=== PATIENT | male | born 1970 | race Caucasian/White ===

== ENCOUNTER 2020-11-02 15:41 | Emergency (ER) | payer BC, SELFPAY ==
[2020-11-02 16:36] VITALS: BP 135/97; PULSE 88; RESP 20; TEMP 37.3; O2SAT 95; BMI 33.9
--- NOTE | 2020-11-02 16:37 | HMH.EDUTC ---
[facility] Disposition Clinical Impression: COVID-19 Disposition: Home, Self-Care Condition on Discharge: Good Instructions: Preventing the Spread of Coronavirus Discharge Instructions Additional Instructions: Drink plenty of fluids. Take tylenol for pain or fever. Return if you begin to have difficulty breathing. Follow up with your regular doctor. GO TO THE ER FOR ANY WORSENING SYMPTOMS Quarantine until you know the results of your covid-19 test. If it is positive, the health department should call you and give you further instructions about your length of Quarantine and other thing. I sent a prescription for zofran to your pharmacy. If you begin to have nausea you could get this and it would help. If you don't end up needing it, then don't pick it up. Prescriptions: Ondansetron [Zofran 4mg ODT] 4 mg PO Q8HP PRN #20 tab.rapdis PRN Reason: Nausea Transmission Status: Received by [id number] Referrals: Laura Meza MD [Primary Care Provider] - Time of Disposition: 16:49 Medical Decision Making - Medical Records Medical records reviewed: No: I reviewed the patient's medical records. - Dale Inquiry Pt receiving controlled substance: No Vital Signs: 11/02/20 16:36 11/02/20 17:07 Temperature 99.2 F 99.3 F Temperature Source Oral Pulse Rate 85 Pulse Rate [Left] 88 Respiratory Rate 20 18 Blood Pressure 141/92 H Blood Pressure [Right Arm] 135/97 H Blood Pressure Mean [Right Arm] 109 02 Sat by Pulse Oximetry 95 Orders (Tests/Meds): ORDERS Category Date Time Status Covid-19 Nasal PCR ([facility]) Routine Lab 11/02/20 16:30 Received [facility] HPI - General Stated complaint: covid test Time Seen by Provider: 11/02/20 16:37 - History of Present Illness Provider Complaint: He states that he started feeling bad last (3 days ago). He was exposed to covid-19 at his work before that. He has been vaccinated with the Pfizer vaccine. He denies that he has felt very bad. He denies any cough, congestion or chest pain. - Related Data Home Medications Medication Instructions Recorded Confirmed bupropion HCl 150 mg tablet,12 hr 150 mg PO BID 06/20/17 sustained-release lisinopril 5 mg tablet 5 mg PO ONCE 06/20/17 Previous Rx's Medication Instructions Recorded Ondansetron [Zofran 4mg ODT] 4 mg PO Q8HP PRN #20 tab.rapdis 11/02/20 Allergies Allergy/AdvReac Type Severity Reaction Status Date / Time No Known Allergies Allergy Verified 06/20/17 18:47 [facility] History - Hepatitis A Screen Attestation statement:: This patient has been screened for Hepatitis A risk factors. I have reviewed the patient's past medical history: Yes Medical History: Reports:: Depression, Diabetes Mellitus Type 2, Hypertension Other Surgeries: Yes: No Previous Surgery Amputation: No Fractures: No - Social History Smoking Status: Never smoker Alcohol Intake: current Alcohol Intake Frequency:: holidays/special occasions only - Psychiatric History Pschychiatric History:: Reports:: Depression Family Hx:: No significant family history ROS Obtained: Yes All systems reviewed & no additional complaints - Constitutional Constitutional: Reports as per HPI - Eyes Eyes: Denies eye discharge - ENT Ears, Nose, Mouth, and Throat: Reports as per HPI - Cardiovascular Cardiovascular: Denies chest pain - Respiratory Respiratory: Reports chest congestion, Reports cough, Denies dyspnea, Denies stridor, Denies wheezing Physical Exam - General General appearance: alert, in no apparent distress - Head Head exam: atraumatic, normocephalic, normal inspection - Eye Eye exam: Present: normal appearance, PERRL, EOMI - ENT ENT exam: Present: normal exam, normal oropharynx, mucous membranes moist, TM's normal bilaterally, normal external ear exam - Neck Neck exam: Present: normal inspection, full ROM, trachea midline. Absent: meningismus, lymphadenopat
[2020-11-02 17:07] VITALS: BP 141/92; PULSE 85; RESP 18; TEMP 37.4
--- NOTE | 2020-11-03 14:27 | PC.NURSE ---
results given to pt
--- NOTE | 2020-11-04 12:37 | PC.NURSE ---
called and left voicemail for pt to return call r/t trying to notify pt of test results
== END 2020-11-02 17:10 | disposition home or self-care (01) ==
PROVIDERS: Emergency Provider Nurse Practitioner Family; PCP Family Medicine
DX: U07.1 COVID-19 (principal); F33.1 Major depressive disorder, recurrent, moderate
CPT/HCPCS: 99202; G0463; U0003

== ENCOUNTER 2022-01-04 19:17 | Emergency (ER) | payer BC, SELFPAY ==
[2022-01-04 19:42] VITALS: BP 140/100; PULSE 87; RESP 16; TEMP 36.8; O2SAT 97; BMI 32.3
--- NOTE | 2022-01-04 19:53 | EXP.UTC ---
Discharge Plan Disposition Patient Disposition: Home, Self-Care Condition: Good Prescriptions Prescriptions: New doxycycline hyclate [doxycycline hyclate] 100 mg capsule 100 mg PO Q12 10 Days Qty: 20 0RF mupirocin 2 % ointment 1 applic topical TID 7 Days Qty: 1 0RF No Action bupropion HCl [Wellbutrin SR] 150 mg tablet extended release 12 hr 150 mg PO BID lisinopril 5 mg tablet 5 mg PO ONCE ondansetron 4 MG tablet,disintegrating 4 mg PO Q8HP PRN (Reason: Nausea) Qty: 20 0RF Referrals Follow up/Referrals: Cecil Veras MD [Primary Care Provider] - See instructions Jose G Pierce MD [Staff Physician] - See instructions Activity Restrictions/Add. Instructions Additional Instructions/Restrictions: Keep the affected area clean and dry. Follow up with your regular doctor. Take the antibiotics as directed and apply the topical antibiotics as directed. Apply warm wet compresses to the affected area three or four times per day. GO TO THE ER FOR ANY WORSENING SYMPTOMS I put in a referral to Dr. Pierce (surgery) to have the cyst on your scalp evaluated. Clinical Impressions Clinical Impression: Tick bite of back, Pilar cyst of scalp Instructions Patient Instructions: DI for Cellulitis -- Adult, DI for Epidermal Cyst Discharge ED Provider: Reed Andrew [facility] General Stated complaint: Had tick on back part of body still in back Mode of Arrival: Ambulatory Source of Information: Patient Limitations: No Limitations Time Seen by Provider: 01/04/22 19:55 Description of Symptoms (Recalled from Triage Doc. by RN): pt comes in with c/o possible tick head stuck in back. pt was able to get body of tick off himself. pt states he noticed spot today HEENT Symptoms (Recalled from RN notes): No Resp Symptoms (Recalled from RN notes): No Skin Symptoms (Recalled from RN notes): Yes MS Symptoms (Recalled from RN notes): No Functional Status (Recalled from RN notes): n/a History of Present Illness Provider Complaint: He states that his found a tick embedded on his back today. She removed the tick, but he wanted to have it checked. Related Data Home Medications Medication Instructions Recorded Confirmed bupropion HCl 150 mg tablet,12 hr 150 mg PO BID 06/20/17 sustained-release (Wellbutrin SR) lisinopril 5 mg tablet 5 mg PO ONCE 06/20/17 Previous Rx's Medication Instructions Recorded ondansetron 4 mg disintegrating 4 mg PO Q8HP PRN Nausea ##20 11/02/20 tablet doxycycline hyclate 100 mg capsule 100 mg PO Q12 10 days #20 caps 01/04/22 mupirocin 2 % topical ointment 1 applic topical TID 7 days #1 g 01/04/22 Allergies Allergy/AdvReac Type Severity Reaction Status Date / Time No Known Allergies Allergy Verified 01/04/22 19:44 Worker's Comp Is this a Worker's Comp case?: No PFSH PFSH Social History Smoking Status: Never smoker alcohol intake: current current occupational status: employed Travel in the last 8 weeks: None ROS Obtained: Yes All systems reviewed & no additional complaints except as documented Constitutional Constitutional: Denies chills and Denies fever(s) Eyes Eyes: Denies eye discharge ENT Ears, Nose, Mouth, and Throat: Denies dizziness, Denies otalgia and Denies sore throat Cardiovascular Cardiovascular: Denies chest pain Respiratory Respiratory: Denies shortness of breath, Denies chest congestion, Denies cough, Denies stridor and Denies wheezing Gastrointestinal Gastrointestingal: Denies nausea or vomiting Musculoskeletal Musculoskeletal: Reports system reviewed and no additional complaints, except as documented and Denies arthralgias Integumentary/Breasts Skin/Breast: Reports as per HPI Neurologic Neurologic: Denies dizziness and Denies paresthesias Allergic/Immunologic Allergic/Immunologic: Denies wheezing Physical Exam General General appearance: alert and in no
[2022-01-04 20:22] VITALS: BP 140/100; PULSE 87; RESP 16; TEMP 36.8
== END 2022-01-04 20:26 | disposition home or self-care (01) ==
PROVIDERS: Emergency Provider Nurse Practitioner Family; PCP Family Medicine
DX: S30.860A Insect bite (nonvenomous) of lower back and pelvis, initial encounter (principal); L72.11 Pilar cyst
CPT/HCPCS: 99212; G0463

== ENCOUNTER 2022-12-05 00:04 | Emergency (ER) | payer BC, SELFPAY ==
[2022-12-05 00:07] VITALS: BP 150/91; PULSE 87; RESP 18; TEMP 36.7; O2SAT 99; BMI 33.9
--- NOTE | 2022-12-05 00:33 | HMH.EDGENADL ---
Discharge Plan Disposition Patient Disposition: Home, Self-Care Condition: Good Prescriptions Prescriptions: New amoxicillin-pot clavulanate 875-125 mg tablet 1 tab PO BID 5 Days Qty: 10 0RF No Action bupropion HCl [Wellbutrin SR] 150 mg tablet extended release 12 hr 150 mg PO BID lisinopril 5 mg tablet 5 mg PO ONCE ondansetron 4 MG tablet,disintegrating 4 mg PO Q8HP PRN (Reason: Nausea) Qty: 20 0RF doxycycline hyclate [doxycycline hyclate] 100 mg capsule 100 mg PO Q12 10 Days Qty: 20 0RF mupirocin 2 % ointment 1 applic topical TID 7 Days Qty: 1 0RF Referrals Follow up/Referrals: Cecil Veras MD [Primary Care Provider] - See instructions Activity Restrictions/Add. Instructions Additional Instructions/Restrictions: Please take antibiotics as prescribed. Please follow-up with your neighbor to ensure that the dog is up-to-date on rabies. If not, please call animal control. Please follow wound care instructions as discussed. Clinical Impressions Clinical Impression: Dog bite of calf Qualifiers: Encounter type: initial encounter Laterality: left Qualified Code(s): S81.852A - Open bite, left lower leg, initial encounter Instructions Patient Instructions: Animal Bites Discharge ED Provider: Victor Manuel Walsh Adult HPI General Chief complaint: Animal Bite Stated complaint: AO 12/05/22 2100 Dog bite left leg Time Seen by Provider: 12/05/22 00:11 Mode of Arrival: Ambulatory Source of Information: Patient Limitations: No Limitations Description of Symptoms (Recalled from ER Triage Doc. by RN): Pt was picking his up from a friends neighbors house this evening when their dog bit him on their dog bit him on the left calf. States his last tetanus is less than 5 yrs ago. History of Present Illness HPI narrative: 52-year-old male without significant past medical history presents with left calf dog bite. Reports it was his neighbors dog. He is unsure if it is up-to-date on rabies but will follow-up tomorrow. Reports mild oozing but no significant bleeding. Reports he thinks he is up-to-date on his tetanus shot. They irrigated the wound at home. He reports no significant pain at this time. Related Data Home Medications Medication Instructions Recorded Confirmed bupropion HCl 150 mg tablet,12 hr 150 mg PO BID 06/20/17 sustained-release (Wellbutrin SR) lisinopril 5 mg tablet 5 mg PO ONCE 06/20/17 Previous Rx's Medication Instructions Recorded ondansetron 4 mg disintegrating 4 mg PO Q8HP PRN Nausea ##20 11/02/20 tablet doxycycline hyclate 100 mg capsule 100 mg PO Q12 10 days #20 caps 01/04/22 mupirocin 2 % topical ointment 1 applic topical TID 7 days #1 g 01/04/22 amoxicillin 875 mg-potassium 1 tab PO BID 5 days #10 tabs 12/05/22 clavulanate 125 mg tablet Allergies Allergy/AdvReac Type Severity Reaction Status Date / Time No Known Allergies Allergy Verified 01/04/22 19:44 [facility] Disclaimer: The information contained in this section may have been updated after the patient was seen, as this information can be updated by other users. Social History (Updated 01/05/22 @ 00:23 by Reed Andrew APRN) Smoking Status: Current every day smoker alcohol intake: current current occupational status: employed Travel in the last 8 weeks: None ROS Obtained: Yes All systems reviewed & no additional complaints except as documented Physical Exam General General appearance: alert and in no apparent distress Head Head exam: atraumatic and normocephalic Eye Eye exam: Present normal appearance, PERRL and EOMI ENT ENT exam: Present normal oropharynx and normal external ear exam Neck Neck exam: Present normal inspection and full ROM Chest Chest inspection: Present normal inspection and symmetric chest wall rise; Absent tenderness Respiratory Respiratory exam: Present normal lung sounds bilaterally; Absent respiratory distress Cardiovascular Car
[2022-12-05 00:38] VITALS: BP 149/91; PULSE 81; RESP 18; TEMP 36.7; O2SAT 99
== END 2022-12-05 00:38 | disposition home or self-care (01) ==
PROVIDERS: Emergency Provider Emergency Medicine; PCP Family Medicine
DX: S81.852A Open bite, left lower leg, initial encounter (principal); F17.200 Nicotine dependence, unspecified, uncomplicated; W54.0XXA Bitten by dog, initial encounter
CPT/HCPCS: 99283

== ENCOUNTER 2023-08-12 13:03 | Outpatient (CLI) | payer SELFPAY ==
--- NOTE | 2023-08-12 13:07 | CT_ITS ---
APPROVED REPORT Technical Operator: CLINICAL INDICATION Risk stratification TECHNIQUE Image Acquisition: A 128 slice MDCT scanner (Smart[employer] View) was used for data acquisition. A noncontrast coronary calcium scan was performed. A CT attenuation threshold of 130 Hounsfield units (HU) was used for the detection of calcium in contiguous voxels of 1 sq mm in area to be counted as individual lesions. A tube voltage of 120 KVp was used. The patient received no medications prior to the coronary calcium CT. Image Reconstruction Transaxial images were reconstructed at 0.67 mm slide thickness. Data was reviewed interactively on an advanced workstation capable of 2 and 3-dimensional displays in all conventional reconstruction formats, including multiplanar reformations, maximum intensity projections, curved multiplanar reformations, and volume rendered reconstructions. When applicable, selected routine images describing the relevant coronary anatomy and pathology were saved and sent to PACS. Complications None Technical Quality Overall image quality was good. Total DLP (Dose-Length Product) is 179.9 mGy-cm. The reported value represents the total of one or more individual components during the CT acquisition of this date and at this time, and as such, the same value may appear in more than one CT report depending on the interpreting/reporting physicians. COMPARISON None FINDINGS CT Coronary Calcium Scoring LMA (Left Main Artery) = 0 LAD (Left Anterior Descending) = 5 LCX (Left Coronary Circumflex) = 0 RCA (Right Coronary Artery) = 0 Total Calcium Score = 5 using the AJ-130 method. There is no identifiable calcification in the aortic valve, mitral annulus or mitral valve, pericardium, or myocardium. IMPRESSION -Minimal coronary artery calcification is present. -Total Calcium Score (Agatston Score) = 5 using the AJ-130 method. -The observed calcium score of 5 is at 51st percentile for subjects of the same age, sex, and race/ethnicity. The interpretation of the calcium heart score is based on the following continuum*: 0 = no calcified plaque detected (risk of coronary artery disease is very low ??? less than 5%) 1-10 = calcium detected in extremely minimal levels (risk of coronary diseases is still low ??? less than 10%) 11-100 = mild levels of plaque detected with certainty (mild or minimal narrowing of heart arteries is likely) 101-400 = definite,at least moderate levels of plaque detected (relatively high risk of a heart attack within 3-5 years) >401-999 = extensive levels of plaque detected (high risk of heart attack, high levels of vascular disease are present, high likelihood of at least one significant coronary narrowing) *The calcium heart score quantifies the burden of coronary calcification/plaque in the coronary arteries. The calcium heart score does not evaluate the presence or the burden of non-calcified (i.e. soft) plaque. The coronary and cardiac findings of this Coronary Calcium CT were reviewed, reported, and signed by Lam Flood MD (Offshore Wind Operations Manager). Conclusion Electronically signed by : Brigida Flood MD 08/18/2023 11:43:11
== END 2023-08-12 23:59 | disposition home or self-care (01) ==
LOC: RAD 13:03
PROVIDERS: PCP Family Medicine; Visit Provider Family Medicine
DX: Z13.6 Encounter for screening for cardiovascular disorders (principal)
CPT/HCPCS: 75571

== ENCOUNTER 2023-10-12 14:58 | Outpatient (CLI) | payer BC, SELFPAY ==
--- NOTE | 2023-10-12 15:17 | ECG_ITS ---
APPROVED REPORT Exam: Resting ECG HR:89 bpm ECG Measurements Heart Rate 89 AXES AK 140 P 15 QRSd 85 QRS 46 QT 351 T 15 QTc 398 Conclusion SINUS RHYTHM NORMAL ECG UNCONFIRMED REPORT Electronically signed by : Jamie Gomez MD 10/12/2023 15:59:12
[2023-10-12 15:28] LABS: Basophils # 0.1 K/mm3 (0-0.2); Basophils % 1.1 % (0.1-2.0); Eosinophils # 0.4 K/mm3 (0.0-0.4); Hematocrit 45.9 % (42.0-52.0); Hemoglobin 15.1 g/dL (14.1-18.0); Lymphocytes # 1.5 K/mm3 (0.7-4.5); Lymphocytes % 20.9 % (10-50); Mean Corpuscular HGB Conc 32.9 g/dL (31.8-35.4); Mean Corpuscular Hemoglobin 28.9 pg (27.0-31.2); Mean Corpuscular Volume 87.9 fl (80-94); Mean Platelet Volume 8.3 fl (7.4-10.4); Monocytes # 0.6 K/mm3 (0.1-1.0); Monocytes % 8.8 % (1.7-9.3); Neutrophils # 4.4 K/mm3 (1.8-7.8); Neutrophils % 63.1 % (37.0-80.0); Platelet Count 259 K/mm3 (142-424); Red Blood Count 5.23 M/mm3 (4.60-6.20); Red Cell Distribution Width 14.5 % (11.5-17.5); White Blood Count 6.9 K/mm3 (4.8-10.8)
[2023-10-12 15:50] LABS: Chloride 108 mmol/L (98-107); Sodium 142 mmol/L (136-145)
[2023-10-12 15:51] LABS: Potassium 3.9 mmoL/L (3.5-5.1)
[2023-10-12 15:54] LABS: Anion Gap 11.9 mEq/L (5-15); Blood Urea Nitrogen 16 mg/dl (9-20); Calcium 9.8 mg/dl (8.4-10.2); Carbon Dioxide 26 mmol/L (22.0-30.0); Estimated Glomerular Filt Rate 78 ml/min (>60); GFR (African American) 94 ML/MIN (>60); Glucose 126 mg/dl (74-100)
== END 2023-10-12 23:59 | disposition home or self-care (01) ==
LOC: LAB 14:59
PROVIDERS: PCP Family Medicine; Visit Provider Surgery
DX: L72.11 Pilar cyst (principal)
CPT/HCPCS: 36415; 80048; 85025; 93005

== ENCOUNTER 2023-10-17 08:40 | Day surgery (SDC) | payer BC, SELFPAY ==
[2023-10-14 13:57] VITALS: BMI 34.5
[2023-10-17] VITALS (9 sets, daily range): BP systolic 103–156; BP diastolic 57–108; PULSE 82–103; RESP 11–18; TEMP 36.1–36.6; O2SAT 92–95
--- NOTE | 2023-10-17 09:04 | EXP.ANES.CKL ---
[facility] Disclaimer: The information contained in this section may have been updated after the patient was seen, as this information can be updated by other users. Social History Smoking Status: Current every day smoker alcohol intake: current alcohol intake frequency: holidays/special occasions only substance use type: denies use current occupational status: employed Travel in the last 8 weeks: None [facility] Anesthesia Checklist Patient Identification Patient Identification: Arm Band and Verbal (Name & ) Structural Data Admitted From: Home Planned Operative Procedure/s: Scalp lesion excision Consent for Planned Operative Procedure(s) Verified: Yes Verified Documents: Surgical Consent and History and Physical NPO Status Verified Time NPO: 00:00 Chart Verification Results Verified: CBC and BMP Additional verifications Anesthesia Reactions: No Airway Assessment Mallampati Score:: Class III C-Spine Mobility Assessed: Yes TMJ Mobility Assessed: Yes Dentition: Good Dentition Neurological Assessment Level of Consciousness: Awake Hx Seizures: No Numbness or tingling in extremities: No Anesthesia Plan Anesthesia Risk discussed: Yes Anesthesia Plan: Verified ASA Class: II Anesthesia Type: General
[2023-10-17] MEDS: LACTATED RINGERS 1000ML 1,000 ML 25 ML IV (09:06)
[2023-10-17 09:21] LABS: POC Glucose,Bedside 119 (70-110)
[2023-10-17] MEDS: CEFAZOLIN SODIUM 2 GM in 0.9 % SODIUM CHLORIDE 100 ML IV (09:55)
[2023-10-17] MEDS: LIDOCAINE 1% 20ML MDV 20 ML (10:00)
--- NOTE | 2023-10-17 10:07 | P.OP_ITS ---
Date of procedure: 10/17/23 Pre-op Diagnosis:: 1.5 cm mid/anterior scalp cyst Post-op Diagnosis:: Same Procedure performed:: Excision of 1.5 cm scalp cyst Surgeon:: Jose G Pierce MD SPLICER OPERATOR:: Joaquim Garcia Anesthesia: LMA Estimated blood loss (mL): 5 Operative findings:: Cyst capsule excised in toto Wound left open in order to heal by secondary intention Operative note:: After informed consent was obtained the patient was taken to the operating room and placed in the supine position. General anesthesia with laryngeal mask airway was achieved. His mid/anterior scalp region was prepped and draped in a sterile fashion. After infiltration with local anesthetic an elliptical incision was made around the central portion of the lesion. The subcutaneous tissue was dissected with electrocautery for the margin of the cyst capsule. The cyst capsule was bluntly excised/freed and then passed off for pathologic evaluation. Electrocautery was utilized to achieve hemostasis. The decision was made to proceed with wound packing as the cyst capsule had a focal point of rupture. Once the wound was packed dressings were applied and the patient was transferred to recovery in stable condition. Condition: stable Disposition: PACU Specimens:: Scalp cyst Complications:: No immediate
--- NOTE | 2023-10-17 10:16 | EXP.ANES.I ---
[facility] Anesthesia Record Part I Anesthesia Record I Intake, IV Amount: 700 Hydration: Adequate Estimated blood loss (mL): 5 Urine output (mL): 0 Blood Products used (#): none Blood Pressure: 147/80 SaO2: 93 Pulse Rate: 103 Airway Patency: Patent Respiratory Rate: 16 Temperature: 97.8 F Patient is:: Drowsy and Stable Stable to PACU at:: 10:10
[2023-10-17 10:27] LABS: POC Glucose,Bedside 105 (70-110)
--- NOTE | 2023-10-18 09:20 | P.PNANES_ITS ---
[facility] Anesthesia Record Part II Anesthesia Record Part II Discharge Time: 10:40 Destination: Surgical Day Care (OP Surgery) PACU nurse assessment reviewed?: Yes Patient Condition:: Good Anesthesia Complications:: None Swallowing reflex intact?: Yes Airway Patency: Patent Cyanosis?: No Blood Pressure: 103/60 SaO2: 95 Respiratory Rate: 16 Pulse Rate: 93 Temperature: 98 F Mental Status: Alert & Oriented Pain level:: 0 Nausea and/or vomitting:: None Intake, IV Amount: 0 Hydration: Adequate
[2023-10-18 09:21] VITALS: BP 103/60; PULSE 93; RESP 16; TEMP 36.6; O2SAT 95
== END 2023-10-17 11:10 | disposition home or self-care (01) ==
PROVIDERS: PCP Family Medicine; Visit Provider Surgery
PROC: (CPT 11422; principal; 2023-10-17 10:30)
DX: L72.12 Trichodermal cyst (principal)
CPT/HCPCS: 11422; 82962; J0690; J1100; J2250; J2405; J3010; J7120